=== PATIENT | male | born 1965 | race Two or more races ===

== ENCOUNTER → 2024-11-10 | Outpatient (CLI) | payer MEDICAID, SELFPAY ==
--- NOTE | 2024-11-10 08:48 | XR_ITS ---
Examination: MRI lumbar spine without contrast Date and time of exam: November 10, 2024 0922 hours, comparison December 01, 2022 INDICATIONS: Low back pain radiating to the left leg 4 years Technique: Multiple MRI axial and sagittal sections lumbar spine. Sagittal T2-weighted images, TR 3500, TE 118 T1 weighted transverse sections, TR 688 T8.5, T2-weighted sagittal sections T1 weighted sagittal sections TR 621, TE 30 T2 axial sections, TR 4, 190, TE 84. Findings: Grade 1 anterolisthesis L4 on L5 Mild to moderate diffuse lumbar disc narrowing most prominent L4-L5 Diffuse lumbar disc desiccation Adequate marrow signal lumbar vertebral bodies L5-S1 no disc protrusion L4-L5 moderate overall spinal stenosis, secondary to grade 1 anterolisthesis L4 on L5, 5 mm central lumbar disc bulge, facet arthropathy and thickening of ligamenta flava with mild bilateral L4 ganglionic compression L3-L4 3 mm central lumbar disc bulge L2-L3 foraminal disc bulges but no ganglionic compression L1-L2 through millimeters central lumbar disc bulge IMPRESSION: L4-L5 moderate overall spinal stenosis, grade 1 anterolisthesis L4 on L5, 5 mm central lumbar disc bulge with mild bilateral L4 ganglionic compression
== END | disposition home or self-care (01) ==
LOC: SMRI 08:36
PROVIDERS: Referring Provider Registered Nurse Community Health; Visit Provider Registered Nurse Community Health
DX: M48.061 Spinal stenosis, lumbar region without neurogenic claudication (principal); G95.20 Unspecified cord compression
CPT/HCPCS: 72148